=== PATIENT | female | born 1970 | race Caucasian/White ===

== ENCOUNTER 2018-01-29 11:10 | Emergency (ER) | payer MEDICAID ==
[~2018-01-29] VITALS: Ht 157.5 cm; Wt 113.6 kg
[2018-01-29 12:41] VITALS: BP 124/81
[2018-01-29] MEDS ORDERED: IBUPROFEN 800 MG TABLET PO ONE (12:45)
== END 2018-01-29 12:57 | disposition home or self-care (01) ==
LOC: EMS 11:11
DX: H60.91 Unspecified otitis externa, right ear (principal)
CPT/HCPCS: 99283

== ENCOUNTER 2021-11-24 09:42 | Emergency (ER) | payer MEDICAID, OTHER ==
[~2021-11-24] VITALS: Ht 154.9 cm; Wt 102.7 kg
[2021-11-24 09:44] VITALS: BP 153/99
[2021-11-24] MEDS ORDERED: VALA10002 PO (10:41)
== END 2021-11-24 10:57 | disposition home or self-care (01) ==
LOC: EMS 09:44
DX: G51.0 Bell's palsy (principal)
CPT/HCPCS: 99283

== ENCOUNTER 2022-12-12 07:23 | Emergency (ER) | payer OTHER ==
[~2022-12-12] VITALS: Ht 162.6 cm; Wt 109.1 kg
[~2022-12-12 07:23] MED LIST: VALA10002 PO
[2022-12-12 07:25] VITALS: TEMP 98.4
[2022-12-12] MEDS ORDERED: LORazepam 1 MG TABLET PO ONE (08:00)
[2022-12-12] MEDS ORDERED: KETOROLAC TROMETHAMINE 60 MG/2 ML VIAL IM ONE (08:00)
[2022-12-12] MEDS ORDERED: OxyCODONE HCL/ACETAMINOPHEN 5-325 MG TABLET PO ONE (09:45)
[2022-12-12] MEDS ORDERED: LIDOCAINE 5% TRANSDERMAL PATCH TD ONE (09:45)
[2022-12-12] MEDS ORDERED: IBUP-1492 PO (10:02)
[2022-12-12] MEDS ORDERED: PERCT PO (10:03)
[2022-12-12 10:12] VITALS: BP 136/69; PULSE 74; RESP 16
== END 2022-12-12 10:14 | disposition home or self-care (01) ==
LOC: EMS 07:23
DX: M65.222 Calcific tendinitis, left upper arm (principal); Z98.890 Other specified postprocedural states
CPT/HCPCS: 99285; 93931; 93971; 73060; 96372; J1885